=== PATIENT | male | born 1985 | race Caucasian/White ===

== ENCOUNTER 2020-05-17 07:20 | Day surgery (SDC) | payer OTHER ==
[~2020-05-17] VITALS: Ht 177.8 cm; Wt 95.8 kg
[~2020-05-17 07:20] MED LIST: VITAMIN D31000 UNI1 PO
[2020-05-17] MEDS ORDERED: BALSALAZIDE DI750 MG (07:41)
[2020-05-17] MEDS ORDERED: ALBU3IS (07:41)
== END 2020-05-17 09:19 | disposition home or self-care (01) ==
LOC: ORSCSDS 07:20
PROVIDERS: Internal Medicine Gastroenterology
PROC: 0DBE8ZX Excision of Large Intestine, Via Natural or Artificial Opening Endoscopic, Diagnostic (ICD-10-PCS; principal; 2020-05-17 08:30)
DX: K52.9 Noninfective gastroenteritis and colitis, unspecified (principal); Z86.010 Personal history of colon polyps; K64.8 Other hemorrhoids; J45.909 Unspecified asthma, uncomplicated; Z79.899 Other long term (current) drug therapy
CPT/HCPCS: 88305; J2405; J2704; J7120